=== PATIENT | male | born 1990 | race Caucasian/White ===

== ENCOUNTER 2016-12-09 16:33 | Emergency (ER) | payer SELFPAY ==
[~2016-12-09] VITALS: Ht 180.3 cm; Wt 83.9 kg
[~2016-12-09 16:33] MED LIST: AUGMENTIN1 TA2 PO; CLEOCIN HCL300 MG PO; IBUPROFEN200 MG PO; NAPROSYN 500MG500 MG PO; NOMEDS XX; SEPTRA DS 800 M1 TAB PO; SULFAMETHOXAZOL1 TA6 PO; VICODIN 5/500 T1 TAB PO
[2016-12-09 17:08] VITALS: BP 150/73
== END 2016-12-09 17:12 | disposition home or self-care (01) ==
LOC: UTC 16:33
DX: S91.332A Puncture wound without foreign body, left foot, initial encounter (principal); W45.0XXA Nail entering through skin, initial encounter; Z23 Encounter for immunization